=== PATIENT | male | born 1990 | race Caucasian/White ===

== ENCOUNTER 2020-12-31 15:09 | Emergency (ER) | payer OTHER ==
[2020-12-31 15:33] VITALS: BP 126/74; PULSE 72; TEMP 98.6; BMI 21.8
[2020-12-31] MEDS ORDERED: DIPHTH,PERTUSS(ACELL),TET 0.5 ML DISP.SYRIN IM ONE ×2 (15:40→15:43)
== END 2020-12-31 16:01 | disposition home or self-care (01) ==
LOC: FER 15:09
PROC: 0HQFXZZ Repair Right Hand Skin, External Approach (ICD-10-PCS; principal; 2020-12-31)
PROC: 3E0234Z Introduction of Serum, Toxoid and Vaccine into Muscle, Percutaneous Approach (ICD-10-PCS; 2020-12-31)
DX: S61.216A Laceration without foreign body of right little finger without damage to nail, initial encounter (principal)
CPT/HCPCS: 90715; 99285-25

== ENCOUNTER 2021-01-11 17:46 | Emergency (ER) | payer OTHER ==
[2021-01-11 17:59] VITALS: BP 112/74; PULSE 70; TEMP 98.6; BMI 22.1
== END 2021-01-11 18:04 | disposition home or self-care (01) ==
LOC: FER 17:46
DX: Z48.01 Encounter for change or removal of surgical wound dressing (principal)
CPT/HCPCS: 99281-25